=== PATIENT | male | born 1965 | race African-American/Black ===

== ENCOUNTER 2023-12-28 12:06 | Emergency (ER) | payer SELFPAY ==
[2023-12-28] MEDS ORDERED: ONDANSETRON HCL/PF 4 MG/2 ML VIAL IVP ONE (12:30)
[2023-12-28] MEDS ORDERED: IV NS 0.9% 1,000 ML BAG IV ONE (12:30)
== END 2023-12-28 12:39 | disposition left against medical advice (07) ==
LOC: ER 12:14
DX: R11.0 Nausea (principal); Z53.21 Procedure and treatment not carried out due to patient leaving prior to being seen by health care provider